=== PATIENT | male | born 1960 | race Caucasian/White ===

== ENCOUNTER 2021-08-06 11:43 | Day surgery (SDC) | payer MEDICAID ==
[~2021-08-06] VITALS: Ht 175.3 cm; Wt 96.9 kg
[2021-08-06] VITALS (12 sets, daily range): BP systolic 103–181; BP diastolic 64–103
[2021-08-06] MEDS ORDERED: CITA10TA93 PO (12:24)
[2021-08-06] MEDS ORDERED: LISI10TA27 PO (12:24)
[2021-08-06] MEDS ORDERED: fentaNYL/PF 50MCG/1 ML 2ML syringe ONE (12:50)
[2021-08-06] MEDS ORDERED: midazolam 1 mg/ML 2ml injection ONE (12:50)
[2021-08-06] MEDS ORDERED: diphenhydrAMINE 25mg capsule PO PRN (12:50)
[2021-08-06] MEDS ORDERED: normal saline 1,000 ML IV SCH (12:50)
[2021-08-06] MEDS ORDERED: LIDOcaine 1% (10mg/ml)w/preservative injection 20ml MDV ONE (12:50)
[2021-08-06] MEDS ORDERED: LORazepam 0.5 MG tablet PO PRN (12:50)
[2021-08-06] MEDS ORDERED: iohexol 350MG/ML 100ml bottle IV ONE (12:50)
[2021-08-06] MEDS ORDERED: iohexol 350 MG/ML 50ML vial IV ONE (12:50)
[2021-08-06] MEDS ORDERED: nitroGLYCERIN 0.4mg SUBLingual tab SL PRN ×2 (12:50→13:05)
[2021-08-06 12:57] LABS: BASOPHILS # (AUTO) 0.1 X10'3 (0-0.2); EOSINOPHILS # (AUTO) 0.2 X10'3 (0-0.9); EOSINOPHILS % (AUTO) 2.8 % (0-6); HEMATOCRIT 45.7 % (42.0-52.0); HEMOGLOBIN 15.9 g/dl (14.0-17.9); LYMPHOCYTES # (AUTO) 1.3 X10'3 (1.1-4.8); LYMPHOCYTES % (AUTO) 17.4 % (21-51); MEAN CORPUSCULAR HEMOGLOBIN 35.1 PG (27.0-31.0); MEAN CORPUSCULAR HGB CONC 34.7 g/dL (33.0-36.5); MEAN PLATELET VOLUME 8.5 FL (7.4-10.4); MONOCYTES # (AUTO) 0.7 X10'3 (0-0.9); NEUTROPHILS % (AUTO) 68.8 % (42-75); PLATELET COUNT 198 X10'3 (140-440); RED BLOOD COUNT 4.53 X10'6 (4.70-6.10); RED CELL DISTRIBUTION WIDTH 13.1 % (11.5-14.5); WHITE BLOOD COUNT 7.3 X10'3 (4.5-11.0)
[2021-08-06 12:58] LABS: ALBUMIN 3.6 G/DL (3.4-5.0); ANION GAP 9 (8-16); BLOOD UREA NITROGEN 8 MG/DL (7-18); BUN/CREATININE RATIO 9.6 (5.4-32.0); CALCIUM 9.2 MG/DL (8.5-10.1); CHLORIDE 101 MMOL/L (99-107); CREATININE 0.83 MG/DL (0.60-1.10); GLUCOSE 93 MG/DL (70-104); POTASSIUM 3.9 MMOL/L (3.5-5.1); SODIUM 134 MMOL/L (135-145); eGFR > 90 ML/MIN
[2021-08-06 13:02] LABS: PARTIAL THROMBOPLASTIN TIME 27 SECONDS (22-32)
[2021-08-06] MEDS ORDERED: amLODIPine 5mg tablet PO STA (13:02)
[2021-08-06] MEDS ORDERED: enalaprilat dihydrate 2.5mg/2ml vial IV ONE (13:05)
[2021-08-06] MEDS ORDERED: nitroGLYCERIN-Tridil 50MG/D5W 250 ML IV ONE (14:09)
[2021-08-06] MEDS ORDERED: proCHLORperazine 10 MG/2 ml inj IV PRN (14:55)
[2021-08-06] MEDS ORDERED: HYDROcodone/acetaminophen 5mg/325mg tablet PO PRN (14:55)
[2021-08-06] MEDS ORDERED: OXAZEpam 15mg capsule PO PRN (14:55)
[2021-08-06] MEDS ORDERED: ondansetron/PF 4mg/2ml inj IV PRN (14:55)
[2021-08-06] MEDS ORDERED: HYDROcodone/acetaminophen 10/325mg tab PO PRN (14:55)
== END 2021-08-06 20:20 | disposition home or self-care (01) ==
LOC: SSTAY O 11:43
PROVIDERS: ATTEND Internal Medicine Cardiovascular Disease
DX: R94.39 Abnormal result of other cardiovascular function study (principal); I25.10 Atherosclerotic heart disease of native coronary artery without angina pectoris; I42.9 Cardiomyopathy, unspecified; I10 Essential (primary) hypertension; E78.5 Hyperlipidemia, unspecified; F32.9 Major depressive disorder, single episode, unspecified; F17.210 Nicotine dependence, cigarettes, uncomplicated; Z72.89 Other problems related to lifestyle; Z79.899 Other long term (current) drug therapy; Z79.01 Long term (current) use of anticoagulants
CPT/HCPCS: 36415; 71046; 80048; 85025; 85610; 85730; 93005; 93458; 99152; C1760; C1769; J1644; J2250; J3010; J3490; J7030; Q0163; Q9967; 99153; A4620; A6258